=== PATIENT | female | born 1990 | race Two or more races ===

== ENCOUNTER 2019-10-12 21:58 | Emergency (ER) | payer BC, OTHER ==
[~2019-10-12] VITALS: Ht 167.6 cm; Wt 54.4 kg
--- NOTE | 2019-10-12 22:58 | NUR ---
BIBS FOR C/O H/A, AND HEAVY HEADED S/P "JUMPED OUT OF THE [place] INTO A POOL AND HIT MY HEAD" -KO. ALSO W/ C/O TROUBLE SLEEPING SINCE THEN. DENIES DIZZINESS, VISION CHANGES, N/V. DENIES SOB. NO ACUTE DISTRESS NOTED. MADE COMFORTABLE AND READY FOR EVAL.
[2019-10-12] MEDS ORDERED: ACETAMINOPHEN ES 500 MG TABLET ONE (23:16)
--- NOTE | 2019-10-12 23:24 | NUR ---
PO MEDS GIVEN. PT CHOKED AND THREW UP, BUT MANAGED TO SWALLOW PILLS.
[2019-10-12] MEDS ORDERED: ACETAMINOPHEN 325 MG TABLET PO ONE (23:30)
[2019-10-13 01:42] VITALS: BP 120/87
== END 2019-10-13 01:42 | disposition home or self-care (01) ==
LOC: ER 22:01
DX: S09.8XXA Other specified injuries of head, initial encounter (principal); R51 Headache; F17.200 Nicotine dependence, unspecified, uncomplicated; W18.39XA Other fall on same level, initial encounter; Y93.39 Activity, other involving climbing, rappelling and jumping off; Y92.89 Other specified places as the place of occurrence of the external cause; Y99.8 Other external cause status
CPT/HCPCS: 70450-TC